=== PATIENT | male | born 1945 | race Caucasian/White ===

== ENCOUNTER 2019-04-24 | Emergency (ER) | payer OTHER, MEDICARE, BC ==
[2019-04-24] MEDS ORDERED: ASPIRIN 81 LOW81 MG PO (16:34)
[2019-04-24] MEDS ORDERED: WELCHOL625 MG PO (16:34)
[2019-04-24] MEDS ORDERED: NIACIN SR500 M1 (16:34)
[2019-04-24] MEDS ORDERED: TRAMADOL HYDROC50 M1 PO (16:36)
[2019-04-24] MEDS ORDERED: ZESTRIL5 M1 PO (16:40)
[2019-04-24] MEDS ORDERED: ALENDRONATE SOD70 MG PO (16:40)
[2019-04-24] MEDS ORDERED: TRESIBA100 UNIT/M IN (16:41)
== END 2019-04-24 16:50 | disposition home or self-care (01) | DRG 206 ==
DX: S22.32XA Fracture of one rib, left side, initial encounter for closed fracture (principal); E11.9 Type 2 diabetes mellitus without complications; F17.210 Nicotine dependence, cigarettes, uncomplicated; W01.0XXA Fall on same level from slipping, tripping and stumbling without subsequent striking against object, initial encounter; Y93.89 Activity, other specified; Y92.009 Unspecified place in unspecified non-institutional (private) residence as the place of occurrence of the external cause; Z79.4 Long term (current) use of insulin

== ENCOUNTER 2019-04-30 | Emergency (ER) | payer MEDICARE, BC ==
[~2019-04-30] MED LIST: ALENDRONATE SOD70 MG PO; ASPIRIN 81 LOW81 MG PO; NIACIN SR500 M1; TRAMADOL HYDROC50 M1 PO; TRESIBA100 UNIT/M IN; WELCHOL625 MG PO; ZESTRIL5 M1 PO
[2019-04-30] MEDS ORDERED: MULTI VIT PO (16:09)
[2019-04-30] MEDS ORDERED: SLO-NIACIN500 MG PO (16:10)
[2019-04-30] MEDS ORDERED: WELCHOL625 MG PO (16:11)
[2019-04-30] MEDS ORDERED: GLIPIZIDE5 M2 PO (16:12)
[2019-04-30] MEDS ORDERED: CRESTOR5 MG PO (16:13)
[2019-04-30] MEDS ORDERED: ALENDRONATE SOD70 MG PO (16:14)
[2019-04-30] MEDS ORDERED: TRESIBA100 UNIT/M SC (16:15)
[2019-04-30] MEDS ORDERED: ALOGLIPTIN25 MG PO (16:16)
[2019-04-30] MEDS ORDERED: VENTOLIN HFA IN (16:56)
[2019-04-30] MEDS ORDERED: TESSALON PERLE100 MG PO (17:05)
== END 2019-04-30 17:05 | disposition home or self-care (01) ==
DX: R05 Cough (principal); F17.210 Nicotine dependence, cigarettes, uncomplicated; E11.9 Type 2 diabetes mellitus without complications; Z79.4 Long term (current) use of insulin